=== PATIENT | female | born 1970 | race Caucasian/White ===

== ENCOUNTER 2016-08-23 09:51 | Emergency (ER) | payer OTHER ==
[2016-08-23 10:49] LABS: HEMOGLOBIN 13.1 gm/dl (12.3-15.3); RED BLOOD COUNT 4.25 M/UL (4.00-5.10)
[2016-08-23 11:03] LABS: BUN/CREATININE RATIO 13 (0-10)
== END 2016-08-23 12:36 | disposition home or self-care (01) ==
LOC: ER1 09:51
PROVIDERS: Emergency Medicine
DX: L02.413 Cutaneous abscess of right upper limb (principal); L03.113 Cellulitis of right upper limb; F17.210 Nicotine dependence, cigarettes, uncomplicated; Z90.49 Acquired absence of other specified parts of digestive tract
CPT/HCPCS: 36415; 73090; 80053; 83605; 83690; 84703; 85025; 85610; 85730; 87040; 99283

== ENCOUNTER 2021-06-29 20:41 | Emergency (ER) | payer OTHER ==
[~2021-06-29 20:41] MED LIST: BACTRIM DS TAB1 EACH PO; CLEOCIN HCL150 MG PO; CLEOCIN HCL300 MG PO; FERROUS SULFAT325 M2 PO; K-DUR TAB 20 M20 MEQ PO; KEFLEX CAP 500500 MG PO; METHOCARBAMOL500 MG PO; PERCOCET 7.5-31 EACH PO; POTASSIUM CHLO10 ME1 PO; SUBOXONE 8 MG-1 EACH SL; TYLENOL 325MG325 MG PO; ZYVOX600 MG PO
== END 2021-06-30 00:33 | disposition left against medical advice (07) ==
LOC: ER1 20:41
DX: R50.9 Fever, unspecified (principal); I10 Essential (primary) hypertension; F17.200 Nicotine dependence, unspecified, uncomplicated; Z20.822 Contact with and (suspected) exposure to COVID-19
CPT/HCPCS: 0240U; 71045; 81001; 84703; 87081; 87086; 87880; 99283

== ENCOUNTER 2022-01-09 22:21 | Emergency (ER) | payer OTHER | END 2022-01-10 02:24 | disposition home or self-care (01) | LOC: ER1 22:21 | DX: U07.1 COVID-19 (principal); Z23 Encounter for immunization; F17.200 Nicotine dependence, unspecified, uncomplicated; Z86.79 Personal history of other diseases of the circulatory system | CPT/HCPCS: 99283; M0222 ==